=== PATIENT | female | born 1995 | race Caucasian/White ===

== ENCOUNTER 2022-03-27 21:25 | Emergency (ER) | payer MEDICAID ==
[~2022-03-27] VITALS: Ht 154.9 cm; Wt 69.0 kg
[2022-03-27 22:26] VITALS: BP 114/72
[2022-03-28] MEDS ORDERED: ACETAMINOPHEN 500MG TABLET PO ONE (01:30)
[2022-03-28] MEDS ORDERED: IBUP-2029 MT (04:14)
== END 2022-03-28 03:47 | disposition home or self-care (01) ==
LOC: ER 21:25
DX: S09.8XXA Other specified injuries of head, initial encounter (principal); S00.83XA Contusion of other part of head, initial encounter; S30.0XXA Contusion of lower back and pelvis, initial encounter; Y08.89XA Assault by other specified means, initial encounter; Y93.9 Activity, unspecified; Y92.9 Unspecified place or not applicable; Z98.890 Other specified postprocedural states
CPT/HCPCS: 70486; 72040; 72100; 81025; 99284